=== PATIENT | male | born 1990 | race Caucasian/White ===

== ENCOUNTER 2022-11-20 16:29 | Emergency (ER) | payer MEDICAID ==
[~2022-11-20] VITALS: Ht 165.1 cm; Wt 93.0 kg
[2022-11-20 16:38] VITALS: BP 167/96
== END 2022-11-20 22:20 | disposition left against medical advice (07) ==
LOC: EDH 16:29
DX: R10.9 Unspecified abdominal pain (principal); R20.0 Anesthesia of skin; Z53.21 Procedure and treatment not carried out due to patient leaving prior to being seen by health care provider